=== PATIENT | male | born 1990 | race Asian ===

== ENCOUNTER 2018-12-31 08:41 | Emergency (ER) | payer MEDICAID ==
[~2018-12-31] VITALS: Ht 185.4 cm; Wt 81.6 kg
[2018-12-31 08:56] VITALS: BP 124/64
[2018-12-31] MEDS ORDERED: NKM (08:57)
--- NOTE | 2018-12-31 09:07 | Emergency Room Report ---
History of Present Illness General Chief Complaint: Chest Pain Source: Patient Present Illness HPI 28-year-old male with no medical problems, does report cocaine, ecstasy, marijuana use in November, reports he had chest pain last night, felt like an achy pain, with associated palpitations, woke up this morning is still feeling it, he reports his symptoms resolved now. He thinks he may be just anxious, he has an appointment with a electric arc welder in 2 weeks, but he got anxious about this. He had a similar episode achy pain and palpitations last summer after using cocaine, Ecstasy, alcohol during a binge last summer for one day. Allergies: Coded Allergies: No Known Allergies (Unverified , 12/31/18) Patient History Past Medical History: see triage record Reviewed Nursing Documentation: PMH: Agreed; PSxH: Agreed Nursing Documentation-PMH Past Medical History: No Stated History Review of Systems All Other Systems: negative except mentioned in HPI Physical Exam Vital Signs Date Time Temp Pulse Resp B/P (MAP) Pulse Ox O2 Delivery O2 Flow Rate FiO2 12/31/18 08:55 97.3 68 16 118/61 95 Room Air Sp02 EP Interpretation: reviewed, normal General Appearance: no apparent distress, alert, non-toxic Head: normocephalic Eyes: bilateral eye normal inspection, bilateral eye PERRL, bilateral eye EOMI ENT: normal ENT inspection, hearing grossly normal, normal pharynx, no angioedema, normal voice, moist mucus membranes Neck: normal inspection, full range of motion, supple, supple/symm/no masses Respiratory: chest non-tender, lungs clear, normal breath sounds, chest symmetrical, palpation of chest normal Cardiovascular #1: normal peripheral pulses, regular rate, rhythm Cardiovascular #2: 2+ radial (R), 2+ radial (L) Gastrointestinal: normal inspection, non tender, soft, no mass, no guarding, no rebound Rectal: deferred Genitourinary: normal inspection, no CVA tenderness Musculoskeletal: back normal, gait/station normal, normal range of motion, non- tender, no calf tenderness, Nelly's Sign negative Neurologic: alert, responsive, 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 I discussed suspect possible pericarditis, I will give prescription for prn NSAIDs, and as patient heart he has a follow-up with a electric arc welder in 2 weeks, I recommend he keep that appointment, I also counseled him on avoidance of illicit drugs such as cocaine, dominique, ecstasy, marijuana, and heavy alcohol use. Labs showed elevated BUN, recommended avoidance of EtOH , po hydration, f/u with cardiology. EKG Diagnostic Results EKG Time: 09:01 EP Interpretation: no stemi, normal qtc 399, qrs 94ms, pr 146ms, diffuse pr depressions Rate: normal Rhythm: NSR ST Segments: no acute changes ASA given to the pt in ED: No Rhythm Strip Diag. Results Rhythm Strip Time: 09:11 EP Interpretation: yes Rate: 68 Rhythm: NSR, no PVC's, no ectopy Chest X-Ray Diagnostic Results Chest X-Ray Diagnostic Results : Chest X-Ray Ordered: Yes # of Views/Limited/Complete: 1 View Indication: Chest Pain EP Interpretation: Yes Interpretation: no consolidation, no effusion, no pneumothorax, no acute cardiopulmonary disease Impression: No acute disease Electronically Signed by: Nik Abreu MD Last Vital Signs Date Time Temp Pulse Resp B/P (MAP) Pulse Ox O2 Delivery O2 Flow Rate FiO2 12/31/18 08:55 97.3 68 16 118/61 95 Room Air Disposition: HOME, SELF-CARE Condition: Stable NIK ABREU M.D Dec 31, 2018 09:07
--- NOTE | 2018-12-31 09:07 | NUR ---
ED Nurse Note: Pt walked in to ER c/o 04/18 chest tightness which lasted for a couple of months. Per pt, the chest pain occurs in the morning when he just wakes up. aao x4, skin clean and intact, calm and cooperative.
[2018-12-31 09:28] LABS: BASOPHILS % (AUTO) 2.3 % (0.0-2.0); EOSINOPHILS % (AUTO) 2.2 % (0.0-3.0); HEMATOCRIT 42.6 % (42.0-52.0); HEMOGLOBIN 13.8 G/DL (14.2-18.0); LYMPHOCYTES % (AUTO) 33.4 % (20.0-45.0); MEAN CORPUSCULAR VOLUME 90 FL (80-99); NEUTROPHILS % (AUTO) 52.2 % (45.0-75.0); PLATELET COUNT 265 K/UL (150-450); RED BLOOD COUNT 4.72 M/UL (4.70-6.10); RED CELL DISTRIBUTION WIDTH 12.5 % (11.6-14.8); WHITE BLOOD COUNT 4.7 K/UL (4.8-10.8)
[2018-12-31 09:38] LABS: ANION GAP 7 mmol/L (5-15); BLOOD UREA NITROGEN 19 mg/dL (7-18); CALCIUM 9.3 MG/DL (8.5-10.1); CARBON DIOXIDE 25 MMOL/L (21-32); CHLORIDE 105 MMOL/L (98-107); CREATININE 1.1 MG/DL (0.55-1.30); POTASSIUM 4.4 MMOL/L (3.5-5.1); SODIUM 137 MMOL/L (136-145)
[2018-12-31 09:43] LABS: ALANINE AMINOTRANSFERASE 28 U/L (12-78); ALBUMIN 3.7 G/DL (3.4-5.0); ALKALINE PHOSPHATASE 66 U/L (46-116); ASPARTATE AMINO TRANSFERASE 17 U/L (15-37); BILIRUBIN,TOTAL 0.3 MG/DL (0.2-1.0)
[2018-12-31] MEDS ORDERED: IBUPROFEN600 MG ORAL (09:51)
[2018-12-31 09:57] VITALS: BP 116/64
--- NOTE | 2018-12-31 09:59 | NUR ---
ER DISCHARGE NOTE: Patient is cleared to be discharged per ERMD, pt is aox4, on room air, with stable vital signs. pt was given dc and prescription instructions, pt was able to verbalize understanding, pt id band and iv site removed without complications. pt is able to ambulate with steady gait. pt took all belongings.
--- NOTE | 2018-12-31 11:39 | Diagnostic Imaging Report ---
Indication: Dyspnea Comparison: None A single view chest radiograph was obtained. Findings: Cardiomediastinal appearance is within normal limits for age. The lungs are clear. Pulmonary vascularity is appropriate. The diaphragmatic contour is smooth and costophrenic angles are sharp. No pleural effusions are identified. The bones are unremarkable. Impression: No acute findings
== END 2018-12-31 09:58 | disposition home or self-care (01) ==
LOC: EMR 09:08
DX: R07.9 Chest pain, unspecified (principal); R00.2 Palpitations
CPT/HCPCS: 36415; 71045; 80053; 84484; 85025; 93005; 99284